=== PATIENT | female | born 1970 | race American Indian/Alaskan Native ===

== ENCOUNTER 2018-08-22 23:56 | Emergency (ER) | payer OTHER ==
[2018-08-23 00:07] VITALS: BP 142/91
--- NOTE | 2018-08-23 01:00 | XRay Report ---
PROCEDURE: XR ANKLE 3+V LT TECHNIQUE: 3 views of the left ankle were obtained. HISTORY: pain to L ankle s/p GLF COMPARISONS: None FINDINGS: There is soft tissue swelling around the ankle. Ankle mortise appears well-maintained. There is no ev idence of fracture or joint effusion. IMPRESSION: Soft tissue swelling around ankle. No evidence of fracture.. This document is electronically signed by Sebastien Toro MD., Aug 23 2018 12:59:00 AM ET
--- NOTE | 2018-08-23 01:01 | XRay Report ---
PROCEDURE: XR HAND 3+V LT TECHNIQUE: 3 views of the left hand were obtained. HISTORY: pain to L hand s/p GLF COMPARISONS: None FINDINGS: There is no evidence of acute fracture or soft tissue injury. The wrist joint does not show any acute changes. IMPRESSION: Within normal limits.. This document is electronically signed by Sebastien Toro MD., Aug 23 2018 01:00:10 AM ET
--- NOTE | 2018-08-23 03:15 | Emergency Department Report ---
ED Fall HPI - General Chief Complaint: Fall Stated Complaint: FALL Time Seen by Provider: 08/23/18 03:09 Source: patient Mode of arrival: Ambulatory - History of Present Illness Initial Comments: This is a 47-year-old -Italian female presents to the emergency room with pain to left ankle and left fifth metacarpal status post fall 2 hours ago. Past medical history of hypertension and left foot drop. Patient states she fell into a pot hole with hands outstretched landing on her knees. She is now complaining of left ankle and left fifth finger pain. Patient states she is able to apply weight which increases pain. Patient reports some swelling to the left ankle. She denies numbness or tingling, paresthesia, weakness, or hitting head. MD Complaint: fall -: Last night Time: 23:00 Fall From: standing When Fall Occurred: 1-3 hours [employer] Fall Witnessed: no Place Fall Occurred: street Loss of Consciousness: none Prolonged Down Time?: no Symptoms Prior to Fall: none Location - Extremities: Left: Hand (5th metacarpal), Ankle Severity: moderate Severity scale (0 -10): 7 Quality: aching Context: tripped/slipped Associated Symptoms: denies - Related Data Previous Rx's Medication Instructions Recorded Last Taken Type HYDROcodone/APAP 5-325 [Weston 1 each PO Q6HR PRN #8 tablet 03/26/13 Unknown Rx 5-325 mg TAB] Ondansetron [Zofran Odt] 4 mg PO Q6H PRN #8 tab.rapdis 03/26/13 Unknown Rx Hydrocodone Bit/Acetaminophen 1 each PO Q8H PRN #15 tablet 04/23/13 Unknown Rx [Lortab 7.5-500 mg] Promethazine [Phenergan] 25 mg PO Q6H PRN #15 tablet 04/23/13 Unknown Rx Naproxen [Naprosyn] 500 mg PO TID PRN #20 tablet 08/23/18 Unknown Rx Allergies Allergy/AdvReac Type Severity Reaction Status Date / Time narcotic pain meds AdvReac Unknown Uncoded 03/26/13 08:55 ED Review of Systems ROS: Stated complaint: FALL Other details as noted in HPI Constitutional: denies: chills, fever Respiratory: denies: cough, shortness of breath, wheezing Cardiovascular: denies: chest pain, palpitations Gastrointestinal: denies: abdominal pain, nausea, diarrhea Musculoskeletal: arthralgia (left ankle and left fifth finger). denies: back pain, joint swelling Skin: denies: rash, lesions Neurological: denies: headache, weakness, paresthesias Psychiatric: denies: anxiety, depression ED Past Medical Hx - Past Medical History Previous Medical History?: Yes Hx Hypertension: Yes - Surgical History Past Surgical History?: Yes Hx Appendectomy: Yes Additional Surgical History: back and shoulder sugery - Social History Smoking Status: Never Smoker Substance Use Type: None - Medications Home Medications: Home Medications Medication Instructions Recorded Confirmed Last Taken Type HYDROcodone/APAP 5-325 [Weston 1 each PO Q6HR PRN #8 tablet 03/26/13 Unknown Rx 5-325 mg TAB] Ondansetron [Zofran Odt] 4 mg PO Q6H PRN #8 tab.rapdis 03/26/13 Unknown Rx Hydrocodone Bit/Acetaminophen 1 each PO Q8H PRN #15 tablet 04/23/13 Unknown Rx [Lortab 7.5-500 mg] Promethazine [Phenergan] 25 mg PO Q6H PRN #15 tablet 04/23/13 Unknown Rx Naproxen [Naprosyn] 500 mg PO TID PRN #20 tablet 08/23/18 Unknown Rx ED Physical Exam - General Limitations: No Limitations General appearance: alert, in no apparent distress, obese - Respiratory Respiratory exam: Present: normal lung sounds bilaterally. Absent: respiratory distress - Cardiovascular Cardiovascular Exam: Present: regular rate, normal rhythm. Absent: systolic murmur, diastolic murmur, rubs, gallop - GI/Abdominal GI/Abdominal exam: Present: soft, normal bowel sounds - Expanded Upper Extremity Exam Left Shoulder Exam: Present: normal inspection, full ROM Upper Arm exam: Present: normal inspection, full ROM Elbow exam: Present: normal inspection, full ROM Forearm Wrist exam: Present: normal inspection, full ROM Hand Wrist exam: Present: tenderness (tenderness on palpation over the fifth metatarsal, no swelling or erythema, full range of motion). Absent: full ROM (Limited range of motion of the fifth phalanx, pain), swelling, abrasion, laceration, ecchymosis, deformity, crepidus, dislocation, erythema, amputation, nail avulsion, subungual hematoma Neuro motor exam: Present: wrist extension intact, thumb opposition intact, thumb IP flexion intact, thumb adduction intact, fingers 2-5 abduction intact Neurosensory exam: Present: radial nerve intact, ulnar nerve intact, median nerve intact Vascular: Present: normal capillary refill, radial pulse (+2) - Expanded Lower Extremity Exam Left Hip exam: Present: normal inspection, full ROM Upper Leg exam: Present: normal inspection, full ROM Knee exam: Present: normal inspection, full ROM Lower Leg exam: Present: normal inspection, full ROM Ankle exam: Present: tenderness, swelling (tenderness and swelling over the lateral malleolus). Absent: full ROM (Limited range of motion secondary pain), abrasion, laceration, ecchymosis, deformity, crepidus, dislocation, erythema, anterior draw sign Foot/Toe exam: Present: normal inspection, full ROM Neuro vascular tendon exam: Present: no vascular compromise Gait: Positive: observed and limited by pain - Neurological Exam Neurological exam: Present: alert, oriented X3 - Expanded Neurological Exam Expanded Patient oriented to: Present: person, place, time Speech: Present: fluid speech Sensory exam: Upper Extremity Light Touch: Normal, Upper Extremity Pin Prick: Normal, Upper Extremity Temperature: Normal, UE 2 Point Discrimination: Normal, Lower Extremity Light Touch: Normal, Lower Extremity Pin Prick: Normal, Lower Extremity Temperature: Normal, LE 2 Point Discrimination: Normal Motor strength exam: LUE: 5 Best Eye Response (Nico): (4) open spontaneously Best Motor Response (Nico): (6) obeys commands Best Verbal Response (Walters): (5) oriented Nico Total: 15 - Psychiatric Psychiatric exam: Present: normal affect, normal mood - Skin Skin exam: Present: warm, dry, intact, normal color. Absent: rash ED Course Vital Signs 08/23/18 00:04 Temperature 97.8 F Pulse Rate 88 Respiratory 18 Rate Blood Pressure 142/91 O2 Sat by Pulse 100 Oximetry ED Medical Decision Making - Radiology Data Radiology results: report reviewed PROCEDURE: XR HAND 3+V LT TECHNIQUE: 3 views of the left hand were obtained. HISTORY: pain to L hand s/p GLF COMPARISONS: None FINDINGS: There is no evidence of acute fracture or soft tissue injury. The wrist joint does not show any acute changes. IMPRESSION: Within normal limits.. PROCEDURE: XR ANKLE 3+V LT TECHNIQUE: 3 views of the left ankle were obtained. HISTORY: pain to L ankle s/p GLF COMPARISONS: None FINDINGS: There is soft tissue swelling around the ankle. Ankle mortise appears well- maintained. There is no evidence of fracture or joint effusion. IMPRESSION: Soft tissue swelling around ankle. No evidence of fracture.. - Medical Decision Making Patient was examined by me. Vitals are normal and patient is in no acute distress. Ice applied to left ankle. Obtained a x-rays of the left hand and left ankle. Soft tissue swelling around ankle. No evidence of fracture. Findings are susceptible of strain/sprain. Acewrap applied to left lower extremity. Patient given crutches with education. A wrist brace applied to the left upper extremity. Patient informed of results. Start naproxen for pain. Plan discussed with patient to discharge home and treat outpatient. He agrees with ER plan. Patient discharged home in stable condition. Follow up with PCP in 2-3 days. Critical care attestation.: If time is entered above; I have spent that time in minutes in the direct care of this critically ill patient, excluding procedure time. ED Disposition Clinical Impression: Left wrist pain, Sprain and strain of ankle Left ankle pain Qualifiers: Chronicity: acute Qualified Code(s): M25.572 - Pain in left ankle and joints of left foot Muscle strain of wrist Qualifiers: Encounter type: initial encounter Laterality: left Qualified Code(s): S66.912A - Strain of unspecified muscle, fascia and tendon at wrist and hand level, left hand, initial encounter Fall Qualifiers: Encounter type: initial encounter Qualified Code(s): W19.XXXA - Unspecified fall, initial encounter Disposition: TO HOME OR SELFCARE Is pt being admited?: No Does the pt Need Aspirin: No Condition: Stable Instructions: Arthralgia (ED), Muscle Strain (ED), Ankle Sprain (ED), RICE Therapy (ED) Additional Instructions: Rest Use ice or heat on affected area for 20 minutes and off for 2 hours. Take pain medication as needed for pain. Follow up with Primary Care Provider in 2-3 days. Prescriptions: Naproxen [Naprosyn] 500 mg PO TID PRN #20 tablet PRN Reason: Pain , Severe (7-10) Referrals: [facility] [Outside] - 3-5 Days [facility] [Outside] - 3-5 Days [facility] [Outside] - 3-5 Days Forms: Work/School Release Form(ED) Time of Disposition: 03:29
== END 2018-08-23 04:04 | disposition home or self-care (01) ==
LOC: ED 23:56
DX: S66.912A Strain of unspecified muscle, fascia and tendon at wrist and hand level, left hand, initial encounter (principal); S93.402A Sprain of unspecified ligament of left ankle, initial encounter; I10 Essential (primary) hypertension; Z88.5 Allergy status to narcotic agent; Z90.49 Acquired absence of other specified parts of digestive tract; W01.198A Fall on same level from slipping, tripping and stumbling with subsequent striking against other object, initial encounter; Y93.89 Activity, other specified; Y92.488 Other paved roadways as the place of occurrence of the external cause; Y99.8 Other external cause status